=== PATIENT | female | born 2000 | race Caucasian/White ===

== ENCOUNTER 2022-10-21 14:16 | Emergency (ER) | payer OTHER, SELFPAY ==
--- NOTE | ~2022-10-21 | CT_ITS ---
EXAMINATION: CT abdomen pelvis w con INDICATION: Diffuse abdominal pain TECHNIQUE: Computed tomographic images of the abdomen and pelvis were obtained after the administrati on of 100 cc of Omnipaque 350 intravenous contrast. The dose-length product (DLP) was 289.50 mGy-cm. Automated exposure control and iterative reconstruction technique were employed. COMPARISON: None available FINDINGS: The lung bases are clear. The heart size is normal. The liver, spleen, pancreas, gallbladde r, and adrenal glands are normal. The kidneys are unremarkable. No pathologically enlarged abdominal or pelvic lymph nodes are identified. No free intraperitoneal gas or evidence of bowel obstruction. T here is a greater than normal number of fluid-filled, nondistended small bowel loops. IMPRESSION: 1. No CT correlate for the patient's symptoms. Reviewed, dictated and finalized at location F.
[2022-10-21 14:39] VITALS: BP 117/88; PULSE 86; RESP 16; TEMP 36.6; O2SAT 100
[2022-10-21 15:04] LABS: Basophils Percent Auto 0.4 % (0.2-1.2); Eosinophils Absolute Auto 0.1 K/mm3 (0-0.3); Eosinophils Percent Auto 1.5 % (0-4.4); Hematocrit 45.3 % (37.0-47.0); Hemoglobin 15.4 g/dL (12.0-15.0); Immature Granulocyte Absolute 0.01 K/mm3 (0.00-0.031); Immature Granulocyte Percent A 0.2 % (0-0.5); Lymphocytes Absolute Auto 1.19 K/mm3 (0.9-3.2); Lymphocytes Percent Auto 22.4 % (18.3-44.2); Mean Corpuscular Hemoglobin 32.7 pg (26-34); Mean Corpuscular Volume 96.2 fl (80-100); Monocytes Absolute Auto 0.6 K/mm3 (0.1-0.6); Monocytes Percent Auto 11.1 % (2.6-8.5); Neutrophils Absolute Auto 3.4 K/mm3 (1.3-6.7); Neutrophils Percent Auto 64.4 % (45.5-73.1); Platelet Count Result 194 k/mm3 (150-375); Red Blood Count 4.71 M/mm3 (4.2-5.4); Red Cell Distribution Width 11.5 % (11.5-14.5); White Blood Count 5.3 K/mm3 (4.5-10.0)
[2022-10-21 15:13] LABS: Alanine Aminotransferase 34 U/L (6-35); Alkaline Phosphatase 50 U/L (38-126); Anion Gap 8 mmol/L (8-16); Aspartate Amino Transferase 35 U/L (14-36); Bilirubin,Total 0.7 mg/dL (0.2-1.3); Blood Urea Nitrogen 8 mg/dL (7-17); Calcium 9.3 mg/dL (8.4-10.2); Carbon Dioxide 29 mmol/L (22-30); Chloride 100 mmol/L (98-107); Estimated CRCL calculation 117 ml/min; Estimated Glomerular Filt Rate > 60; Glucose 94 mg/dL (65-110); Sodium 137 mmol/L (137-145)
[2022-10-21 15:15] LABS: INR 0.9; Prothrombin Time 12.2 Seconds (11.1-14.7)
--- NOTE | 2022-10-21 16:08 | ED.GIBLEED ---
HPI - GI Bleed General Chief complaint: GI Bleed Stated complaint: blood in stool Time Seen by Provider: 10/21/22 16:08 Source: patient and family Mode of arrival: ambulatory Limitations: no limitations History of Present Illness HPI Narrative: Patient is 22 years old white female brought to the emergency room by her mom because of intermittent diarrhea at least twice a day for the last 2 months liquid watery stool, today been feeling lightheadedness and noticed dark blood in the stool. Patient did not eat since yesterday, intermittent vomiting in the last couple weeks, she denies any fever, chills, or urinary symptoms patient denies any rectal pain or hemorrhoids like feeling Related Data Home Medications Medication Instructions Recorded Confirmed norgestimate 0.25 mg-ethinyl 1 tablet DAILY 10/21/22 10/21/22 estradiol 35 mcg tablet (Sprintec (28)) Allergies Allergy/AdvReac Type Severity Reaction Status Date / Time No Known Allergies Allergy Verified 10/21/22 16:00 Review of Systems Review of Systems: All systems reviewed & are unremarkable except as noted in HPI and below Exam Narrative: General appearance: Well-developed, well-nourished Skin: Normal color Head: Normocephalic, nontraumatic Eyes: Clear conjunctiva ENT: Oropharynx normal, ears normal, nose normal Neck: Supple, nontender Chest and respiratory: Airway patent, no respiratory distress, no accessory muscle use Heart: Regular rate/rhythm Abdomen: Soft, diffuse abdominal tenderness, no organomegaly, quiet bowel sounds Vascular: Normal peripheral pulses, normal capillary refill. Musculoskeletal: Normal range of motion, nontender back Neurologic: Alert and oriented ?3, MANAGER BILLING is normal as tested, no gross motor deficit Course Reevaluation(s) Reevaluation #1: Patient still feels the same Date: 10/21/22 Time: 18:21 Vital Signs Vital signs: Vital Signs Temperature 36.6 C 10/21/22 14:39 Pulse Rate 86 10/21/22 14:39 Respiratory Rate 16 10/21/22 14:39 Blood Pressure 117/88 10/21/22 14:39 Pulse Oximetry 100 10/21/22 14:39 Oxygen Delivery Room Air 10/21/22 14:39 Temperature 37.2 C 10/21/22 16:39 Pulse Rate 84 10/21/22 16:37 Respiratory Rate 16 10/21/22 14:39 Blood Pressure 128/87 10/21/22 16:37 Pulse Oximetry 100 10/21/22 16:39 Oxygen Delivery Room Air 10/21/22 14:39 MDM - GI Bleed MDM Narrative Medical decision making narrative: Patient presents with intermittent abdominal pain, intermittent diarrhea, intermittent vomiting for the last 2 months. Patient noticed dark blood in the stool today differential diagnosis include anxiety related symptoms, IBS, inflammatory bowel disease. Work-up today showed normal CBC, normal CMP, normal urine, CT abdomen and pelvis with IV contrast showed no acute abnormalities. Patient declined rectal examination. IBS, versus inflammatory bowel disease is my concern. Patient will be discharged to follow-up with apprentice painter hand.. My plan to discharge her on Bentyl. Differential Diagnosis Differential diagnosis: Likely hemorrhoids, gastritis, Upper gastrointestinal hemorrhage, Lower gastrointestinal hemorrhage and other (IBS, inflammatory bowel disease) Lab Data 10/21/22 14:48 10/21/22 14:48 Labs: Lab Results 10/21/22 10/21/22 10/21/22 Range/Units 14:48 14:48 14:48 WBC 5.3 (4.5-10.0) K/mm3 RBC 4.71 (4.2-5.4) M/mm3 Hgb 15.4 H (12.0-15.0) g/dL Hct 45.3 (37.0-47.0) % MCV 96.2 (80-100) fl MCH 32.7 (26-34) pg MCHC 34.0 (32-36) g/dl RDW 11.5 (11.5-14.5) % Plt Count 194 (150-375) k/mm3 MPV 11.0 H (7.4-10.4) f
[2022-10-21 16:36] VITALS: BP 121/81; BP 124/74; PULSE 75; PULSE 79
[2022-10-21 16:37] VITALS: BP 128/87; PULSE 84
[2022-10-21 16:39] VITALS: TEMP 37.2; O2SAT 100
[2022-10-21 17:12] LABS: Appearance Urine Clear (Clear); Bacteria Urine None Seen /hpf; Bilirubin Urine Negative (Negative); Blood Urine Trace (Negative); Color Urine Yellow (Yellow); Glucose Urine UA Negative (Negative); Ketones Urine Negative (Negative); Leukocyte Esterase Ur Negative LEU/UL (Negative); Nitrate Urine Negative (Negative); Non Pathogenic Casts 0-2; Protein Urine Negative (Negative); RBC Urine 0-2 /hpf (0-2); Specific Grav Ur 1.006 (1.001-1.035); Squamous Epithelial Cell Urine None seen /hpf (Few); WBC Urine 0-5 /hpf
[2022-10-21 17:15] LABS: Add Urine Microscopic? YES
[2022-10-21] MEDS: SODIUM CHLORIDE 0.9% IV 1,000 ML 999 ML IV CONT (17:40)
--- NOTE | 2022-10-21 17:59 | PC.NURSE ---
Pt returned from CT scan
[2022-10-21 18:58] VITALS: BP 116/81; PULSE 72; RESP 16; TEMP 36.7; O2SAT 100
== END 2022-10-21 18:58 | disposition home or self-care (01) ==
PROVIDERS: Emergency Provider Emergency Medicine
DX: K62.5 Hemorrhage of anus and rectum (principal); R10.9 Unspecified abdominal pain
CPT/HCPCS: 36415; 74177; 80053; 81001; 81025; 85025; 85610; 85730; 86850; 86900; 86901; 96360; 99284; J7030; Q9967